=== PATIENT | male | born 1990 | race Caucasian/White ===

== ENCOUNTER 2017-08-16 00:17 | Emergency (ER) | payer BC ==
[2017-08-16] MEDS ORDERED: Ketorolac 60 MG/2 ML SDV IM ONE (00:41)
--- NOTE | 2017-08-16 00:46 | EDM.PDOC ---
ED HPI GENERAL MEDICAL PROBLEM - General Chief Complaint: Lower Extremity Injury/Pain Stated Complaint: RIGHT KNEE PAIN Time Seen by Provider: 08/16/17 00:34 - History of Present Illness INITIAL COMMENTS - FREE TEXT/NARRATIVE: HISTORY AND PHYSICAL: History of present illness: The patient is a healthy 27-year-old male who presents with complaints of pain to his right knee laterally that occurred after he kneeled with some force on a chair. Patient did not fall to the ground and he has no proximal thigh or hip pain and no distal tib-fib ankle or foot pain and no neurosensory changes or weakness in the leg. Patient says he had surgery in 2013 on the same knee. He said initially he had a meniscal tear that they treated with injectable cortisone and some therapy and then he still had persistent problems and reinjured it and they did a arthroscopy which turned into an open procedure. Since that time he has had pain but not to this level. He has continued to work and walk on it and has only been taking Tylenol for pain. He has no calf pain or swelling and most of the pain is located laterally on the knee not medially. Review of systems: As per history of present illness and below otherwise all systems reviewed and negative. Past medical history: As per history of present illness and as reviewed below otherwise noncontributory. Surgical history: As per history of present illness and as reviewed below otherwise noncontributory. Social history: No reported history of drug or alcohol abuse. Family history: As per history of present illness and as reviewed below otherwise noncontributory. Physical exam: Gen.: Well-developed well-nourished man who is nontoxic and vital signs were noted by me HEENT: Atraumatic, normocephalic, negative for conjunctival pallor or scleral icterus, mucous membranes moist, throat clear, neck supple, nontender, trachea midline. Lungs: Clear to auscultation, breath sounds equal bilaterally, chest nontender. Heart: S1S2, regular rate and rhythm no murmurs Abdomen: Soft, nondistended, nontender. Negative for masses or hepatosplenomegaly. NABS Pelvis: Stable nontender. No lateral hip tenderness on the right Genitourinary: Deferred. Rectal: Deferred. Extremities: Atraumatic all extremities on visual inspection including the right knee. At the right knee there is some tenderness laterally and no discrete tenderness of the patella. There is no gross joint effusion but there is some diffuse soft tissue swelling appreciated in the suprapatellar area and laterally. There are no palpable bony deformities at the patella proximal tib- fib or distal femur. Distally and proximally there is no tenderness or bony deformities appreciated. It is difficult to stress the knee due to the patient' s level of discomfort but there is some laxity at the medial and lateral collateral ligaments with a very limited exam. The calves are nontender bilaterally and there is no asymmetry, negative for cords or calf pain. Neurovascular unremarkable. Neuro: Awake, alert, oriented. Cranial nerves II through XII unremarkable. Cerebellum unremarkable. Motor and sensory unremarkable throughout. Exam nonfocal. Diagnostics: X-ray right knee Therapeutics: Crutches, Toradol, neoprene knee brace applied by nursing We discussed the limitations of the emergency department in further evaluating this and that he would need follow-up in orthopedics clinic for possibly an MRI , physical therapy, further care. He is comfortable with that. We will recommend ice immobilization elevation and given medications for pain. Impression: Right knee injury/zaid with history of knee problems Definitive disposition and diagnosis as appropriate pending reevaluation and review of above. right knee Pain Score (Numeric/FACES): 6 - Related Data Allergies Allergy/AdvReac Type Severity Reaction Status Date / Time acetaminophen [From Percocet] Allergy Vomiting Verified 08/16/17 01:06 amoxicillin [From Augmentin] Allergy Vomiting Verified 08/16/17 00:43 clavulanic acid Allergy Vomiting Verified 08/16/17 00:43 [From Augmentin] oxycodone [From Percocet] Allergy Vomiting Verified 08/16/17 01:06 Penicillins Allergy Abdominal Verified 08/16/17 00:43 Pain Home Meds: Home Meds . [No Known Home Meds] 08/16/17 [History] Review of Systems - Review of Systems Review Of Systems: ROS reveals no pertinent complaints other than HPI. ED EXAM, GENERAL - Physical Exam Exam: See Below (See dictation) Course - Vital Signs Last Recorded V/S: Last Vital Signs Temp 36.6 C 08/16/17 00:17 Pulse 88 08/16/17 00:17 Resp 18 08/16/17 00:17 BP 134/85 08/16/17 00:17 Pulse Ox 98 03/07/18 00:17 - Orders/Labs/Meds Orders: Active Orders 24 hr Category Date Time Status Knee 3V Rt [CR] Stat Exams 08/16/17 00:41 Taken DME for Discharge [COMM] Stat Oth 08/16/17 01:53 Ordered Meds: Medications Discontinued Medications Generic Name Dose Route Start Last Admin Trade Name Matthew PRN Reason Stop Dose Admin Ketorolac Tromethamine 60 mg 08/16/17 00:41 08/16/17 01:10 Toradol IM 08/16/17 00:42 60 mg ONETIME ONE Administration Departure - Departure Time of Disposition: 01:55 Disposition: Home, Self-Care 01 Condition: Good Clinical Impression: Knee pain, right Qualifiers: Chronicity: unspecified Qualified Code(s): M25.561 - Pain in right knee Right knee injury Qualifiers: Encounter type: initial encounter Qualified Code(s): S89.91XA - Unspecified injury of right lower leg, initial encounter - Discharge Information Referrals: PCP,None [Primary Care Provider] - Forms: ED Department Discharge Additional Instructions: The following information is given to patients seen in the emergency department who are being discharged to home. This information is to outline your options for follow-up care. We provide all patients seen in our emergency department with a follow-up referral. The need for follow-up, as well as the timing and circumstances, are variable depending upon the specifics of your emergency department visit. If you don't have a primary care physician on staff, we will provide you with a referral. We always advise you to contact your personal physician following an emergency department visit to inform them of the circumstance of the visit and for follow-up with them and/or the need for any referrals to a consulting specialist. The emergency department will also refer you to a specialist when appropriate. This referral assures that you have the opportunity for followup care with a specialist. All of these measure are taken in an effort to provide you with optimal care, which includes your followup. Under all circumstances we always encourage you to contact your private physician who remains a resource for coordinating your care. When calling for followup care, please make the office aware that this follow-up is from your recent emergency room visit. If for any reason you are refused follow-up, please contact the [facility] emergency department at and ask to speak to the emergency department charge nurse. [facility]--Orthopedic clinic Professional Building [address] [place] [address] [address] [place] [address] Brace at all times and only remove at sleep times for support and swelling. Use crutches to try to reduce stress on the joint and elevate and ice as much as possible. Use [id number] Aleve or ibuprofen for pain as this will help with inflammation and only use stronger pain medications as needed when you're at home. Please call and follow-up with our orthopedics clinic using resources given to above for further care and evaluation. Return to ER as needed and as discussed - My Orders Last 24 Hours: My Active Orders 08/16/17 00:41 Knee 3V Rt [CR] Stat 08/16/17 01:53 DME for Discharge [COMM] Stat - Assessment/Plan Last 24 Hours: My Active Orders 08/16/17 00:41 Knee 3V Rt [CR] Stat 08/16/17 01:53 DME for Discharge [COMM] Stat
--- NOTE | 2017-08-16 08:43 | CR ---
EXAM DATE: 08/16/17 PATIENT'S AGE: 27 Patient: HERNANDO VICTORIA Facility: [place], [place] Site . Site : 1990 Study: XRay Knee Right [id number] 1:37:47 AM Ordering Physician: Jimmy Bains Final Report: INDICATION: R knee pain, denies tx Pt states he has hx of "knee problems" TECHNIQUE: Right knee 3 views. COMPARISON: None. FINDINGS: Bones: Alignment is normal. No fractures or bone lesions. Joint spaces: Unremarkable. Soft tissues: Unremarkable. IMPRESSION: Unremarkable right knee. Dictated by: Eric Wills MD @ 08/16/2017 01:52:28 (Electronic Signature) Report Signed by Proxy. CL
== END 2017-08-16 02:11 | disposition home or self-care (01) ==
LOC: MW.ED 00:17
DX: S89.91XA Unspecified injury of right lower leg, initial encounter (principal); Z88.6 Allergy status to analgesic agent; Z88.1 Allergy status to other antibiotic agents; Z88.5 Allergy status to narcotic agent; Z88.0 Allergy status to penicillin; X58.XXXA Exposure to other specified factors, initial encounter
CPT/HCPCS: 73562; 96372; 99283; J1885